=== PATIENT | female | born 1960 ===

== ENCOUNTER 2022-06-26 08:43 | Outpatient (CLI) | payer OTHER | END 2022-06-26 08:46 | disposition home or self-care (01) | LOC: SONOGRAMA 08:43 | PROVIDERS: ATTEND Pathology Anatomic Pathology & Clinical Pathology | DX: D34 Benign neoplasm of thyroid gland (principal); E07.9 Disorder of thyroid, unspecified; D04.9 Carcinoma in situ of skin, unspecified ==